=== PATIENT | male | born 1985 | race Caucasian/White ===

== ENCOUNTER 2018-09-08 23:30 | Emergency (ER) | payer OTHER ==
[2018-09-08 23:45] VITALS: TEMP 98.3
[2018-09-09 00:20] LABS: Appearance,Urine Clear (Clear); Bilirubin,Urine Negative (Negative); Blood,Urine Negative (Negative); Color,Urine Colorless; Glucose,Urine (UA) Negative (Negative); Ketones,Urine Negative (Negative); Leukocyte Esterase,Urine Negative (Negative); Nitrite,Urine Negative (Negative); Protein,Urine Negative (Negative); Urobilinogen,Urine <2.0 mg/dL (<2.0)
[2018-09-09 00:30] LABS: Amphetamine Screen,Urine Not Detected (NotDetected); Barbiturate Screen,Urine Not Detected (NotDetected); Benzodiazepines Screen,Urine Not Detected (NotDetected); Cocaine Screen,Urine Not Detected (NotDetected); Methadone Screen, Urine Not Detected (NotDetected); Opiate Screen,Urine Not Detected (NotDetected); Oxycodone Screen, Urine Not Detected (NotDetected); Phencyclidine Screen,Urine Not Detected (NotDetected); Tricyclic Antidepressant,Urine Not Detected (NotDetected); Urn Cannabinoid Scrn Not Detected (NotDetected)
--- NOTE | 2018-09-09 00:36 | ED ---
Psych HPI - General Source: patient Mode of arrival: ambulatory - History of Present Illness MD Complaint: other Onset/Timin -: week(s) Associated Psychiatric Symptoms: depression, homicidal ideation History of same: No Quality: getting worse Improves With: none Worsens With: alcohol Context: recent alcohol abuse Associated Symptoms: denies other symptoms <JajaOtilio - Last Filed: 09/09/18 00:27> <Eron Cartwright - Last Filed: 09/09/18 11:20> - General Chief Complaint: Psychiatric Symptoms Stated Complaint: mental health Time Seen by Provider: 09/08/18 23:52 - History of Present Illness Initial Comments: This patient is a 33-year-old man who presents with the complaint that he is having thoughts of hurting people. The patient states that going back 2-3 weeks now he is been getting increasingly depressed, and having thoughts of hurting people around him. He denied specific homicidal ideation. He denied suicidal ideation. The patient states he has also been drinking a fair amount recently, 5-10 beers per day plus shots. (Otilio Wilkinson) - Related Data Home Medications Medication Instructions Recorded Confirmed No Known Home Medications 09/08/18 09/09/18 Allergies Allergy/AdvReac Type Severity Reaction Status Date / Time No Known Allergies Allergy Verified 09/09/18 10:51 Review of Systems ROS Other: All systems not noted in ROS Statement are negative. Constitutional: Denies: fever Respiratory: Denies: cough, dyspnea Cardiovascular: Denies: chest pain, palpitations Gastrointestinal: Denies: abdominal pain, vomiting, diarrhea Genitourinary: Denies: dysuria, hematuria Musculoskeletal: Denies: back pain Skin: Denies: rash Neurological: Denies: headache Psychiatric: Reports: depression, homicidal thoughts. Denies: auditory hallucinations, visual hallucinations, suicidal thoughts <Otilio Wilkinson - Last Filed: 09/09/18 00:27> ROS Other: All systems not noted in ROS Statement are negative. <Eron Cartwright - Last Filed: 09/09/18 11:20> ROS Statement: Those systems with pertinent positive or pertinent negative responses have been documented in the HPI. Past Medical History Past Medical History: Asthma, Hypertension Additional Past Medical History / Comment(s): back pain History of Any Multi-Drug Resistant Organisms: None Reported Past Surgical History: No Surgical Hx Reported Past Psychological History: No Psychological Hx Reported Smoking Status: Current every day smoker Past Alcohol Use History: Daily Past Drug Use History: None Reported <Otilio Wilkinson - Last Filed: 09/09/18 00:27> General Exam Limitations: no limitations General appearance: alert, in no apparent distress, appears intoxicated Head exam: Present: atraumatic, normocephalic Eye exam: Present: normal appearance. Absent: scleral icterus, conjunctival injection Respiratory exam: Present: normal lung sounds bilaterally. Absent: respiratory distress, wheezes, rales, rhonchi, stridor Cardiovascular Exam: Present: regular rate, normal rhythm, normal heart sounds. Absent: systolic murmur, diastolic murmur, rubs, gallop GI/Abdominal exam: Present: soft. Absent: distended, tenderness, guarding, rebound, mass Extremities exam: Present: normal inspection. Absent: pedal edema Neurological exam: Present: alert Psychiatric exam: Present: depressed, homicidal ideation. Absent: agitated, anxious, flat affect, manic, suicidal ideation Skin exam: Present: warm, dry, intact, normal color. Absent: rash <Otilio Wilkinson - Last Filed: 09/09/18 00:27> Vital Signs 09/08/18 09/09/18 23:40 05:48 Temperature 98.3 F Pulse Rate 115 H 96 Respiratory 20 16 Rate Blood Pressure 137/94 124/82 O2 Sat by Pulse 98 96 Oximetry - Lab Data Lab Results 09/08/18 Range/Units 23:55 Urine Color Colorless Urine Appearance Clear (Clear) Urine pH 5.0 (5.0-8.0) Ur Specific [place] 1.000 L (1.001-1.035) Urine Protein Negative (Negative) Urine Glucose (UA) Negative (Negative) Urine Ketones Negative (Negative) Urine Blood Negative (Negative) Urine Nitrite Negative (Negative) Urine Bilirubin Negative (Negative) Urine Urobilinogen <2.0 (<2.0) mg/dL Ur Leukocyte Esterase Negative (Negative) Urine Opiates Screen Not Detected (NotDetected) Ur Oxycodone Screen Not Detected (NotDetected) Urine Methadone Screen Not Detected (NotDetected) Ur Propoxyphene Screen Not Detected (NotDetected) Ur Barbiturates Screen Not Detected (NotDetected) U Tricyclic Antidepress Not Detected (NotDetected) Ur Phencyclidine Scrn Not Detected (NotDetected) Ur Amphetamines Screen Not Detected (NotDetected) U Methamphetamines Scrn Not Detected (NotDetected) U Benzodiazepines Scrn Not Detected (NotDetected) Urine Cocaine Screen Not Detected (NotDetected) U Marijuana (THC) Screen Not Detected (NotDetected) Disposition <Otilio Wilkinson - Last Filed: 09/09/18 00:27> Is patient prescribed a controlled substance at d/c from ED?: No Time of Disposition: 11:20 <Eron Cartwright - Last Filed: 09/09/18 11:20> Clinical Impression: Alcohol abuse, Mood disturbance Disposition: HOME SELF-CARE Condition: Good Instructions (If sedation given, give patient instructions): Abuse of Alcohol ( ED) Additional Instructions: Follow-up per [facility] directions Referrals: Jim Saucedo MD [REFERRING] - 1-2 days
[2018-09-09] MEDS ORDERED: ASPIRIN 81 MG PO STA (01:03)
[2018-09-09 05:49] VITALS: BP 124/82; PULSE 96; RESP 16
== END 2018-09-09 11:58 | disposition home or self-care (01) ==
LOC: EC 23:30
DX: F10.10 Alcohol abuse, uncomplicated (principal); F99 Mental disorder, not otherwise specified; F17.200 Nicotine dependence, unspecified, uncomplicated
CPT/HCPCS: 80306; 81003; 82075; 93005; 99284

== ENCOUNTER 2020-12-24 20:49 | Emergency (ER) | payer OTHER ==
[2020-12-24 20:55] VITALS: RESP 16; TEMP 97.7
--- NOTE | 2020-12-24 21:11 | ED ---
Chest Pain HPI - General Chief Complaint: Chest Pain Stated Complaint: Chest Pain Time Seen by Provider: 12/24/20 21:03 Source: patient, EMS Mode of arrival: EMS Limitations: no limitations - History of Present Illness Initial Comments: This patient is a 35-year-old man who presents to be evaluated for chest pain that he states has been going on intermittently for one year. Contrary to nursing notes he states it started in the morning today. MD Complaint: chest pain Onset/Timin -: year(s) Onset: during rest Pain Location: left chest Pain Radiation: none Severity: moderate Quality: aching Consistency: intermittent Improves With: nothing Worsens With: nothing Anginal Symptoms: vomiting Treatments Prior to Arrival: none - Related Data Home Medications Medication Instructions Recorded Confirmed Pantoprazole Sodium [Protonix] 40 mg PO DAILY 12/24/20 12/24/20 Allergies Allergy/AdvReac Type Severity Reaction Status Date / Time No Known Allergies Allergy Verified 12/24/20 22:59 Review of Systems ROS Statement: Those systems with pertinent positive or pertinent negative responses have been documented in the HPI. ROS Other: All systems not noted in ROS Statement are negative. Constitutional: Denies: fever, chills Respiratory: Denies: cough, dyspnea Cardiovascular: Reports: chest pain. Denies: palpitations, orthopnea, edema, syncope Gastrointestinal: Reports: vomiting. Denies: abdominal pain, nausea, diarrhea, constipation, melena, hematochezia Genitourinary: Denies: dysuria, hematuria Musculoskeletal: Denies: back pain Skin: Denies: rash Neurological: Denies: headache, weakness, numbness EKG Findings - EKG Results: EKG: interpreted by SALMA DUMONT, sinus rhythm (Rate 90 bpm), normal axis, normal QRS, normal ST/T, no acute changes Past Medical History Past Medical History: Asthma, Hypertension, Myocardial Infarction ([place]) Additional Past Medical History / Comment(s): back pain History of Any Multi-Drug Resistant Organisms: None Reported Past Surgical History: No Surgical Hx Reported Additional Past Surgical History / Comment(s): skin graft as child Past Psychological History: No Psychological Hx Reported Smoking Status: Current every day smoker Past Alcohol Use History: Heavy Past Drug Use History: None Reported General Exam Limitations: no limitations General appearance: alert, in no apparent distress Head exam: Present: atraumatic, normocephalic Eye exam: Present: normal appearance. Absent: scleral icterus, conjunctival injection Neck exam: Present: normal inspection, full ROM Respiratory exam: Present: normal lung sounds bilaterally, chest wall tenderness. Absent: respiratory distress, wheezes, rales, rhonchi, stridor Cardiovascular Exam: Present: regular rate, normal rhythm, normal heart sounds. Absent: systolic murmur, diastolic murmur, rubs, gallop GI/Abdominal exam: Present: soft, tenderness (Mild left upper quadrant tenderness no rebound or guarding). Absent: distended, guarding, rebound, rigid, mass, pulsatile mass, hernia Extremities exam: Present: normal inspection, normal capillary refill. Absent: pedal edema, calf tenderness Back exam: Present: normal inspection. Absent: CVA tenderness (R), CVA tenderness (L) Neurological exam: Present: alert Skin exam: Present: warm, dry, intact, normal color. 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
[2020-12-24 21:15] LABS: Basophils # (A) 0.2 k/uL (0-0.2); Basophils % (A) 2 %; Eosinophils # (A) 0.6 k/uL (0-0.7); Eosinophils % (A) 6 %; HCT 43.3 % (39.0-53.0); HGB 14.7 gm/dL (13.0-17.5); Lymphocytes # (A) 3.5 k/uL (1.0-4.8); Lymphocytes % (A) 34 %; MCH 33.9 pg (25.0-35.0); MCV 99.9 fL (80.0-100.0); Mean Platelet Volume 7.1; Monocytes # (A) 0.6 k/uL (0-1.0); Monocytes % (A) 6 %; Neutrophils # (A) 5.1 k/uL (1.3-7.7); Neutrophils % (A) 49 %; Platelet Count 205 k/uL (150-450); RBC 4.33 m/uL (4.30-5.90); RDW 13.1 % (11.5-15.5); WBC 10.4 k/uL (3.8-10.6)
[2020-12-24 21:24] LABS: INR 0.9 (<1.2); Partial Thromboplastin Time 23.4 sec (22.0-30.0); Prothrombin Time 9.7 sec (9.0-12.0)
[2020-12-24 21:28] LABS: ALT 25 U/L (4-49); AST 75 U/L (17-59); African American GFR (CKD) >90 (>60 ml/min/1.73 sqM); Albumin 3.7 g/dL (3.5-5.0); Alkaline Phosphatase 62 U/L (38-126); Anion Gap 9 mmol/L; Blood Urea Nitrogen 4 mg/dL (9-20); Calcium 8.7 mg/dL (8.4-10.2); Carbon Dioxide 23 mmol/L (22-30); Chloride 105 mmol/L (98-107); Glucose 75 mg/dL (74-99); Magnesium 1.7 mg/dL (1.6-2.3); Non-African American GFR(CKD) >90 (>60 ml/min/1.73 sqM); Potassium 3.6 mmol/L (3.5-5.1); Sodium 137 mmol/L (137-145); Total Bilirubin 0.3 mg/dL (0.2-1.3); Total Protein 6.4 g/dL (6.3-8.2)
[2020-12-24] MEDS ORDERED: MORPHINE SULFATE 4 MG/ML SYRINGE IV STA (21:31)
--- NOTE | 2020-12-24 21:34 | XR ---
EXAMINATION TYPE: XR chest 2V DATE OF EXAM: 12/24/2020 COMPARISON: NONE HISTORY: Chest pain TECHNIQUE: 2 views FINDINGS: Heart and mediastinum are normal. Lungs are clear. Diaphragm is normal. Bony thorax is inta ct. IMPRESSION: Normal chest. Normal heart.
[2020-12-24 23:26] VITALS: BP 120/88; PULSE 88
== END 2020-12-24 23:26 | disposition home or self-care (01) ==
LOC: EC 20:49
DX: R07.89 Other chest pain (principal); R11.10 Vomiting, unspecified; J45.909 Unspecified asthma, uncomplicated; I10 Essential (primary) hypertension; I25.2 Old myocardial infarction; F17.200 Nicotine dependence, unspecified, uncomplicated
CPT/HCPCS: 36415; 71046; 80053; 83735; 84484; 85025; 85610; 85730; 93005; 96374; 99285

== ENCOUNTER 2021-06-10 15:59 | Inpatient (IN) | payer OTHER ==
--- NOTE | 2021-06-10 16:51 | ED ---
Abdominal Pain HPI - General Chief Complaint: Abdominal Pain Stated Complaint: chest pain Source: patient Mode of arrival: ambulatory Limitations: no limitations - History of Present Illness Initial Comments: 36-year-old male with past history of asthma, hypertension, CVA and 2 reported MIs who presents to the emergency department as reported chest pain. States that the pain is located over the left side of his chest wall and into the left upper quadrant of his abdomen. Pain has been going on for the past month however states that it became acutely worse today. He also feels fatigued. States he's been sleeping all day. He denies cough, fevers or congestion. Admits to nausea without vomiting. No history of abdominal surgeries. Denies history of peptic ulcer disease. Patient denies alcohol intake. Only admits to tobacco use. No history of EGD. He denies hematemesis. Admits diarrhea. No black or bloody stools. Patient arrives with a high heart rate. No other alleviating, precipitating or modifying factors - Related Data Home Medications Medication Instructions Recorded Confirmed Pantoprazole Sodium [Protonix] 40 mg PO DAILY 12/24/20 06/10/21 Allergies Allergy/AdvReac Type Severity Reaction Status Date / Time No Known Allergies Allergy Verified 06/10/21 16:55 Review of Systems ROS Statement: Those systems with pertinent positive or pertinent negative responses have been documented in the HPI. ROS Other: All systems not noted in ROS Statement are negative. Past Medical History Past Medical History: Asthma, Hypertension, Myocardial Infarction ([place]) Additional Past Medical History / Comment(s): back pain History of Any Multi-Drug Resistant Organisms: None Reported Past Surgical History: No Surgical Hx Reported Additional Past Surgical History / Comment(s): skin graft as child Past Psychological History: No Psychological Hx Reported Smoking Status: Current every day smoker Past Alcohol Use History: Occasional Past Drug Use History: None Reported General Exam Limitations: no limitations Course Vital Signs 06/10/21 06/10/21 06/10/21 16:05 19:02 20:32 Temperature 98.5 F Pulse Rate 124 H 116 H 107 H Respiratory 20 18 18 Rate Blood Pressure 144/85 140/97 138/94 O2 Sat by Pulse 99 98 98 Oximetry Medical Decision Making - Medical Decision Making On arrival patient is placed into room 23. A thorough history and physical exam is performed. IV is established. Patient is given a liter bolus of normal saline. He does smell of alcohol. Laboratory studies are obtained and demonstrated an elevated d-dimer of 0.71 and alcohol of 223. He went over for a CT of his abdomen and pelvis before d-dimer came back. CT demonstrated no acute findings. Chest x-ray demonstrated no acute findings. The patient does have persistent tachycardia however improved to a rate of 110. Due to his elevated d-dimer I do feel that the patient needs a lung perfusion scan due to chest pain and persistent tachycardia. He she will be given a dose of Lovenox at this time with lung perfusion scan pending. Recommended admission for which Dr. Orozco accepted and agreed to treatment plan. He is currently awaiting a bed on the floor - Lab Data Result diagrams: 06/10/21 17:26 06/10/21 17:26 Lab Results 06/10/21 06/10/21 06/10/21 Range/Units 17:26 17:26 17:26 WBC 9.8 (3.8-10.6) k/uL RBC 4.88 (4.30-5.90) m/uL Hgb 16.3 (13.0-17.5) gm/dL Hct 49.2 (39.0-53.0) % MCV 100.8 H (80.0-100.0) fL MCH 33.5 (25.0-35.0) pg MCHC 33.3 (31.0-37.0) g/dL RDW 12.8 (11.5-15.5) % Plt Count 294 (150-450) k/uL MPV 7.1 Neutrophils % 63 % Lymphocytes % 24 % Monocytes % 5 % Eosinophils % 3 % Basophils % 1 % Neutrophils # 6.2 (1.3-7.7) k/uL Lymphocytes # 2.3 (1.0-4.8) k/uL Monocytes # 0.5 (0-1.0) k/uL Eosinophils # 0.3 (0-0.7) k/uL Basophils # 0.1 (0-0.2) k/uL PT 9.9 (9.0-12.0) sec INR 0.9 (<1.2) APTT 24.6 (22.0-30.0) sec D-Dimer 0.71 H (<0.60) mg/L FEU Sodium 141 (137-145) mmol/L Potassium 4.0 (3.5-5.1) mmol/L Chloride 106 (98-107) mmol/L Carbon Dioxide 26 (22-30) mmol/L Anion Gap 9 mmol/L BUN 5 L (9-20) mg/dL Creatinine 0.67 (0.66-1.25) mg/dL Est GFR (CKD-EPI)AfAm >90 (>60 ml/min/1.73 sqM) Est GFR (CKD-EPI)NonAf >90 (>60 ml/min/1.73 sqM) Glucose 102 H (74-99) mg/dL Plasma Lactic Acid [place] (0.7-2.0) mmol/L Calcium 9.4 (8.4-10.2) mg/dL Total Bilirubin 0.3 (0.2-1.3) mg/dL AST 48 (17-59) U/L ALT 16 (4-49) U/L Alkaline Phosphatase 49 (38-126) U/L Troponin I (0.000-0.034) ng/mL Total Protein 7.5 (6.3-8.2) g/dL Albumin 4.2 (3.5-5.0) g/dL Lipase 157 (23-300) U/L Serum Alcohol 223 H* mg/dL 06/10/21 06/10/21 Range/Units 17:26 17:26 WBC (3.8-10.6) k/uL RBC (4.30-5.90) m/uL Hgb (13.0-17.5) gm/dL Hct (39.0-53.0) % MCV (80.0-100.0) fL MCH (25.0-35.0) pg MCHC (31.0-37.0) g/dL RDW (11.5-15.5) % Plt Count (150-450) k/uL MPV Neutrophils % % Lymphocytes % % Monocytes % % Eosinophils % % Basophils % % Neutrophils # (1.3-7.7) k/uL Lymphocytes # (1.0-4.8) k/uL Monocytes # (0-1.0) k/uL Eosinophils # (0-0.7) k/uL Basophils # (0-0.2) k/uL PT (9.0-12.0) sec INR (<1.2) APTT (22.0-30.0) sec D-Dimer (<0.60) mg/L FEU Sodium (137-145) mmol/L Potassium (3.5-5.1) mmol/L Chloride (98-107) mmol/L Carbon Dioxide (22-30) mmol/L Anion Gap mmol/L BUN (9-20) mg/dL Creatinine (0.66-1.25) mg/dL Est GFR (CKD-EPI)AfAm (>60 ml/min/1.73 sqM) Est GFR (CKD-EPI)NonAf (>60 ml/min/1.73 sqM) Glucose (74-99) mg/dL Plasma Lactic Acid [place] 2.0 (0.7-2.0) mmol/L Calcium (8.4-10.2) mg/dL Total Bilirubin (0.2-1.3) mg/dL AST (17-59) U/L ALT (4-49) U/L Alkaline Phosphatase (38-126) U/L Troponin I <0.012 (0.000-0.034) ng/mL Total Protein (6.3-8.2) g/dL Albumin (3.5-5.0) g/dL Lipase (23-300) U/L Serum Alcohol mg/dL - EKG Data EKG Comments: EKG demonstrates sinus tachycardia with a rate of 113. NM interval 132. She has 90. QTC of 474. No acute ST segment elevations or depressions Disposition Clinical Impression: Chest pain, Tachycardia, Elevated d-dimer Disposition: ADMITTED IP TO THIS HOSP Condition: Stable Is patient prescribed a controlled substance at d/c from ED?: No Decision to Admit Reason: Admit from EC Decision Date: 06/10/21 Decision Time: 19:48
[2021-06-10] MEDS ORDERED: SODIUM CHLORIDE 0.9% 1,000 ML IV ONE (17:09)
[2021-06-10] MEDS ORDERED: MORPHINE SULFATE 4 MG/ML SYRINGE IVP STA (17:09)
[2021-06-10 17:36] LABS: Basophils # (A) 0.1 k/uL (0-0.2); Basophils % (A) 1 %; Eosinophils # (A) 0.3 k/uL (0-0.7); Eosinophils % (A) 3 %; HCT 49.2 % (39.0-53.0); HGB 16.3 gm/dL (13.0-17.5); Lymphocytes # (A) 2.3 k/uL (1.0-4.8); Lymphocytes % (A) 24 %; MCH 33.5 pg (25.0-35.0); MCHC 33.3 g/dL (31.0-37.0); MCV 100.8 fL (80.0-100.0); Mean Platelet Volume 7.1; Monocytes # (A) 0.5 k/uL (0-1.0); Monocytes % (A) 5 %; Neutrophils # (A) 6.2 k/uL (1.3-7.7); Neutrophils % (A) 63 %; Platelet Count 294 k/uL (150-450); RBC 4.88 m/uL (4.30-5.90); RDW 12.8 % (11.5-15.5); WBC 9.8 k/uL (3.8-10.6)
[2021-06-10 17:47] LABS: ALT 16 U/L (4-49); AST 48 U/L (17-59); African American GFR (CKD) >90 (>60 ml/min/1.73 sqM); Albumin 4.2 g/dL (3.5-5.0); Alkaline Phosphatase 49 U/L (38-126); Anion Gap 9 mmol/L; Blood Urea Nitrogen 5 mg/dL (9-20); Calcium 9.4 mg/dL (8.4-10.2); Carbon Dioxide 26 mmol/L (22-30); Chloride 106 mmol/L (98-107); Glucose 102 mg/dL (74-99); Lipase 157 U/L (23-300); Non-African American GFR(CKD) >90 (>60 ml/min/1.73 sqM); Sodium 141 mmol/L (137-145); Total Bilirubin 0.3 mg/dL (0.2-1.3); Total Protein 7.5 g/dL (6.3-8.2)
[2021-06-10 17:53] LABS: INR 0.9 (<1.2); Partial Thromboplastin Time 24.6 sec (22.0-30.0); Prothrombin Time 9.9 sec (9.0-12.0)
[2021-06-10 17:57] LABS: Alcohol 223 mg/dL
--- NOTE | 2021-06-10 18:51 | CT ---
EXAMINATION TYPE: CT abdomen pelvis w con DATE OF EXAM: 06/10/2021 COMPARISON: None HISTORY: Left upper quadrant pain x couple weeks. CT DLP: 735.8 mGycm Automated exposure control for dose reduction was used. CONTRAST: Performed with IV Contrast, patient injected with 100 mL of Isovue 300. Images obtained from the diaphragm to the floor the pelvis without contrast. Lung bases are clear of consolidation. There is no pleural effusion. Heart size is normal. There is n o pericardial effusion. Liver spleen stomach pancreas gallbladder appear intact. Bile ducts are not dilated. There is no adrenal mass. Kidneys show satisfactory contrast opacification. There is no hydronephrosi s. Bladder distends smoothly. There is no inguinal hernia. There is no free fluid in the pelvis. Appendix appears normal. There is no mesenteric edema. There is no ascites or free air. There is no e vidence of a bowel obstruction. Lumbar vertebra have normal alignment. Posterior elements are intact. There is no compression fracture. Bony pelvis is intact. The hip joints are intact. IMPRESSION: Negative CT scan of the abdomen and pelvis. Normal appendix.
--- NOTE | 2021-06-10 18:56 | XR ---
EXAMINATION TYPE: XR chest 2V DATE OF EXAM: 06/10/2021 COMPARISON: 12/24/2020 HISTORY: Abdominal pain TECHNIQUE: 2 views FINDINGS: Heart and mediastinum are normal. Lungs are clear. Diaphragm is normal. Bony thorax is inta ct. There are chest leads. IMPRESSION: Normal chest. No change.
[2021-06-10] MEDS ORDERED: THIAMINE 100 MG/ML 2 ML VIAL IM STA (19:46)
[2021-06-10] MEDS ORDERED: LORazepam 2 MG/ML INJ IV PRN ×3 (19:46)
[2021-06-10] MEDS ORDERED: ENOXAPARIN 80 MG/0.8 ML SYRINGE SQ STA (19:47)
[2021-06-10] MEDS ORDERED: NALOXONE 0.4 MG/ML 1 ML VIAL IV PRN (19:48)
[2021-06-10] MEDS: diazePAM 2 MG TAB PO SCH (20:28)
[2021-06-10] MEDS: METOPROLOL TARTRATE 12.5 MG TAB PO SCH (20:28)
[2021-06-10] MEDS: SODIUM CHLORIDE 0.9% 1,000 ML IV SCH (20:29)
[2021-06-10] MEDS ORDERED: PANTOPRAZOLE 40 MG/10 ML VIAL IVP STA (21:10)
[2021-06-11 03:36] LABS: Basophils # (A) 0.1 k/uL (0-0.2); Basophils % (A) 1 %; Eosinophils # (A) 0.3 k/uL (0-0.7); Eosinophils % (A) 2 %; HCT 43.5 % (39.0-53.0); HGB 14.6 gm/dL (13.0-17.5); Lymphocytes # (A) 2.8 k/uL (1.0-4.8); Lymphocytes % (A) 24 %; MCH 34.2 pg (25.0-35.0); MCHC 33.6 g/dL (31.0-37.0); MCV 101.8 fL (80.0-100.0); Macrocytosis Slight; Mean Platelet Volume 7.1; Monocytes # (A) 0.6 k/uL (0-1.0); Monocytes % (A) 5 %; Neutrophils # (A) 7.7 k/uL (1.3-7.7); Neutrophils % (A) 66 %; Platelet Count 254 k/uL (150-450); RBC 4.28 m/uL (4.30-5.90); RDW 12.8 % (11.5-15.5); WBC 11.6 k/uL (3.8-10.6)
[2021-06-11] MEDS: SODIUM CHLORIDE 0.9% 1,000 ML IV SCH (03:57)
[2021-06-11 03:58] LABS: African American GFR (CKD) >90 (>60 ml/min/1.73 sqM); Anion Gap 3 mmol/L; Blood Urea Nitrogen 3 mg/dL (9-20); Calcium 8.5 mg/dL (8.4-10.2); Carbon Dioxide 27 mmol/L (22-30); Chloride 106 mmol/L (98-107); Glucose 86 mg/dL (74-99); Non-African American GFR(CKD) >90 (>60 ml/min/1.73 sqM); Potassium 3.6 mmol/L (3.5-5.1); Sodium 136 mmol/L (137-145)
[2021-06-11 06:18] LABS: Appearance,Urine Clear (Clear); Bilirubin,Urine Negative (Negative); Blood,Urine Negative (Negative); Color,Urine Yellow; Glucose,Urine (UA) Negative (Negative); Ketones,Urine Negative (Negative); Leukocyte Esterase,Urine Negative (Negative); Nitrite,Urine Negative (Negative); Protein,Urine Negative (Negative); Specific Gravity,Urine 1.026 (1.001-1.035); Urobilinogen,Urine <2.0 mg/dL (<2.0)
[2021-06-11 06:55] VITALS: BP 124/77; PULSE 93; RESP 13; TEMP 98.3
[2021-06-11] MEDS ORDERED: THIAMINE 100 MG TAB PO SCH (07:30)
[2021-06-11] MEDS: METOPROLOL TARTRATE 12.5 MG TAB PO SCH (08:10)
[2021-06-11] MEDS: diazePAM 2 MG TAB PO SCH (08:10)
--- NOTE | 2021-06-11 10:08 | P.CRDCN ---
History of Present Illness History of present illness: HISTORY OF PRESENTING ILLNESS This is a pleasant 36-year-old male past medical history significant for asthma, alcohol use, chronic nicotine dependence (smokes 1PPD), hypertension (states he is not on medication), 3 strokes per patient (unknown details), possible cardiac arrest in [place] he states 1-2 years ago? Patient unable to give accurate details of this incident. 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 We have been asked to see in consultation for chest pain. Patient presents emergency department with left upper quadrant abdominal pain for about 2 weeks that has progressively been getting worse. He states it is aggravated by activity and palpation to his LUQ. His pain is non-radiating. He denies chest pain. He states it is associated with mild shortness of breath and nausea. He also does endorse symptoms of orthopnea. He denies history of coronary artery disease or stent placements, heart failure or diabetes. Family history includes grandfather had an MD unsure of what age. He states about 1-2 years ago he was in [place] and was told his "heart stopped" he is unaware of any details. He is a current every day smoker smokes 1PPD. He states he does drink alcohol about 6pack Tuesday and Tuesday, however he does state he did drink a 12oz beer yesterday. He denies daily alcohol use. Denies illicit drug use. Patient plan to go for VQ scan today DIAGNOSTICS EKG reveals sinus tachycardia, heart rate 113, LVH, no significant ST-T wave abnormalities Telemetry tracings indicate sinus mechanism HR 80s-low 100s. CT abdomen and Pelvis- no acute findings Chest xray no acute cardiopulmonary process Laboratory reviewed, WBC 11.6, hemoglobin 14.6, platelets 254, sodium 136, potassium 3.6, BUN 3, serum current 0.5, troponin negative 3, UA negative, serum alcohol 223, COVID-19 PCR negative Current home medications include Protonix. Patient started on PRN ativan and metoprolol tartrate 12.5mg BID. REVIEW OF SYSTEMS At the time of my exam: CONSTITUTIONAL: Denies fever or chills. CARDIOVASCULAR: +shortness of breath, +orthopnea Denies chest pain, PND or palpitations. RESPIRATORY: Denies cough. GASTROINTESTINAL: +LUQ abdominal pain, Denies diarrhea, constipation, nausea or vomiting. MUSCULOSKELETAL: Denies myalgias. NEUROLOGIC: Denies numbness, tingling, headacbe or weakness. ENDOCRINE: Denies fatigue, weight change, polydipsia or polyurina. GENITOURINARY: Denies burning, hematuria or urgency with micturation. HEMATOLOGIC: Denies history of anemia or bleeding. PHYSICAL EXAMINATION Blood pressure 124/77, heart rate 93, afebrile oxygen saturation 94% on room air CONSTITUTIONAL: No apparent distress. HEENT: Head is normocephalic. Pupils are equal, round. Sclerae anicteric. Mucous membranes of the mouth are moist. No JVD. No carotid bruit. CHEST EXAMINATION: Lungs are clear to auscultation. No chest wall tenderness is noted on palpation or with deep breathing. HEART EXAMINATION: Regular, tachycardic rate and rhythm. S1, S2 heard. No murmurs, gallops or rub. ABDOMEN: Soft, nontender. Positive bowel sounds. EXTREMITIES: 2+ peripheral pulses, no lower extremity edema and no calf tenderness. NEUROLOGIC EXAMINATION: Patient is awake, alert and oriented x3. ASSESSMENT LUQ abdominal pain Sinus Tachycardia History of Asthma History of hypertension Alcohol use Alcohol withdrawal Chronic nicotine dependence History of CVA- patient reports history of 3 CVAs, unable to give details PLAN An acute coronary event has been ruled out with no EKG evidence of ischemia and negative cardiac enzymes. Patient denies any chest pain on exam. Obtain 2D echocardiogram and doppler study to assess cardiac structure and function. Smoking and alcohol cessation discussed and highly recommended. If echocardiogram with no acute findings, no further cardiac workup indicated at this time. Rest of management per primary. Thank you kindly for this consultation. Nurse Practitioner note has been reviewed, I agree with a documented findings and plan of care. Patient was seen and examined. Past Medical History Past Medical History: Asthma, Hypertension, Myocardial Infarction (MD) Additional Past Medical History / Comment(s): back pain Last Myocardial Infarction Date:: 2019 History of Any Multi-Drug Resistant Organisms: None Reported Past Surgical History: No Surgical Hx Reported Additional Past Surgical History / Comment(s): skin graft as child Past Psychological History: No Psychological Hx Reported Smoking Status: Current every day smoker Past Alcohol Use History: Occasional Past Drug Use History: None Reported Medications and Allergies Home Medications Medication Instructions Recorded Confirmed Type Pantoprazole Sodium [Protonix] 40 mg PO DAILY 12/24/20 06/10/21 History Allergies Allergy/AdvReac Type Severity Reaction Status Date / Time No Known Allergies Allergy Verified 06/10/21 16:55 Physical Exam Vitals: Vital Signs Temp Pulse Pulse Resp BP BP Pulse Ox 06/11/21 06:51 98.3 F 93 13 124/77 94 L 06/11/21 01:39 98.1 F 97 20 133/70 92 L 06/10/21 23:10 98.3 F 99 22 160/93 97 06/10/21 20:32 107 H 18 138/94 98 06/10/21 19:02 116 H 18 140/97 98 06/10/21 16:05 98.5 F 124 H 20 144/85 99 Intake and Output 06/10/21 06/11/21 06/11/21 22:59 06:59 14:59 Other: Voiding Method Toilet Urinal # Voids 2 Weight 71.668 kg Results 06/11/21 03:16 06/11/21 03:16 Cardiac Enzymes 06/10/21 06/10/21 06/10/21 Range/Units 17:26 17:26 21:13 AST 48 (17-59) U/L Troponin I <0.012 <0.012 (0.000-0.034) ng/mL 06/11/21 Range/Units 03:16 AST (17-59) U/L Troponin I <0.012 (0.000-0.034) ng/mL Coagulation 06/10/21 Range/Units 17:26 PT 9.9 (9.0-12.0) sec APTT 24.6 (22.0-30.0) sec CBC 06/10/21 06/11/21 Range/Units 17:26 03:16 WBC 9.8 11.6 H (3.8-10.6) k/uL RBC 4.88 4.28 L (4.30-5.90) m/uL Hgb 16.3 14.6 (13.0-17.5) gm/dL Hct 49.2 43.5 (39.0-53.0) % Plt Count 294 254 (150-450) k/uL Comprehensive Metabolic Panel 06/10/21 06/11/21 Range/Units 17:26 03:16 Sodium 141 136 L (137-145) mmol/L Potassium 4.0 3.6 (3.5-5.1) mmol/L Chloride 106 106 (98-107) mmol/L Carbon Dioxide 26 27 (22-30) mmol/L BUN 5 L 3 L (9-20) mg/dL Creatinine 0.67 0.59 L (0.66-1.25) mg/dL Glucose 102 H 86 (74-99) mg/dL Calcium 9.4 8.5 (8.4-10.2) mg/dL AST 48 (17-59) U/L ALT 16 (4-49) U/L Alkaline Phosphatase 49 (38-126) U/L Total Protein 7.5 (6.3-8.2) g/dL Albumin 4.2 (3.5-5.0) g/dL Current Medications Generic Name Dose Route Start Last Admin Trade Name Freq PRN Reason Stop Dose Admin Diazepam 2 mg 06/10/21 22:00 06/11/21 08:10 Diazepam 2 Mg Tab PO 2 mg TID JN Administration Sodium Chloride 1,000 mls @ 130 mls/hr 06/10/21 20:00 06/11/21 03:57 Saline 0.9% IV Not Given .[id number] JN Lorazepam 1 mg 06/10/21 19:46 06/10/21 23:30 Lorazepam 2 Mg/Ml Inj IV 1 mg Q2HR PRN Administration CIWA 8 or 9 Lorazepam 1 mg 06/10/21 19:46 Lorazepam 2 Mg/Ml Inj IV Q1HR PRN CIWA 10 to 15 Lorazepam 2 mg 06/10/21 19:46 Lorazepam 2 Mg/Ml Inj IV 06/12/21 19:47 Q10M PRN CIWA 16 or higher Metoprolol Tartrate 12.5 mg 06/10/21 21:00 06/11/21 08:10 Metoprolol Tartrate 12.5 Mg Tab PO 12.5 mg BID JN Administration Naloxone HCl 0.2 mg 06/10/21 19:48 Naloxone 0.4 Mg/Ml 1 Ml Vial IV Q2M PRN Opioid Reversal Thiamine HCl 100 mg 06/11/21 07:30 06/11/21 08:11 Thiamine 100 Mg Tab PO 100 mg BID-W/MEALS JN Administration Intake and Output 06/10/21 06/11/21 06/11/21 22:59 06:59 14:59 Other: Voiding Method Toilet Urinal # Voids 2 Weight 71.668 kg 06/11/21 03:16 06/11/21 03:16
--- NOTE | 2021-06-11 10:27 | NM ---
EXAMINATION TYPE: NM pul vent and perfuse DATE OF EXAM: 06/11/2021 COMPARISON: Chest x-ray 06/10/2021 HISTORY: Elevated d-dimer, chest pain TECHNIQUE: Utilizing inhalation of 37.5 mCi Tc 99m DTPA aerosol and intravenous injection of 5.1 mCi of Tc 99m MAA, ventilation and perfusion images are acquired post injection in multiple projections. FINDINGS: Radiotracer distribution on the perfusion images appears normal. Ventilation images appear unremarkab le. No moderate or large mismatched defects are evident. This exam is compared to the 06/10/2021 chest x-ray. No triple matched defects are evident. IMPRESSION: Low probability for pulmonary embolism based on PIOPED 2 criteria.
[2021-06-11] MEDS ORDERED: PANTOPRAZOLE 40 MG TABLET PO SCH (10:45)
[2021-06-11] MEDS ORDERED: NICOTINE 21MG/24HR PATCH TRANSDERM SCH (11:15)
--- NOTE | 2021-06-11 11:42 | ECHOF ---
Referral Reason:LV function MEASUREMENTS -------- HEIGHT: 172.7 cm WEIGHT: 71.7 kg BP: 124/77 RVIDd: 3.0 cm (< 3.3) IVSd: 1.1 cm (0.6 - 1.1) LVIDd: 5.1 cm (3.9 - 5.3) LVPWd: 1.1 cm (0.6 - 1.1) IVSs: 1.7 cm LVIDs: 3.5 cm LVPWs: 1.6 cm LAESV Index (A-L): 22.95 ml/m Ao Diam: 3.2 cm (2.0 - 3.7) AV Cusp: 2.6 cm (1.5 - 2.6) LA Diam: 3.5 cm (2.7 - 3.8) MV EXCURSION: 23.688 mm (> 18.000) MV EF SLOPE: 128 mm/s (70 - 150) EPSS: 0.9 cm MV E Jeff: 0.84 m/s MV DecT: 129 ms MV A Jeff: 0.74 m/s MV E/A Ratio: 1.13 RAP: 5.00 mmHg RVSP: 32.55 mmHg FINDINGS -------- Sinus rhythm. This was a technically adequate study. The left ventricular size is normal. There is borderline concentric left ventricular hypertrophy. Overall left ventricular systolic function is normal with, an EF between 55 - 60 %. The diastolic filling pattern is normal for the age of the patient 9.71. The right ventricle is normal in size. Normal LA size by volume 22+/-6 ml/m2. The right atrial size is normal. Interatrial and interventricular septum intact. The aortic valve is trileaflet, and appears structurally normal. No aortic stenosis or regurgitation. The mitral valve is normal. There is trace mitral regurgitation. The tricuspid valve appears structurally normal. Mild tricuspid regurgitation present. Right vent ricular systolic pressure is normal at < 35 mmHg. The right ventricular systolic pressure, as measu red by Doppler, is 32.55mmHg. There is no pulmonic regurgitation present. The aortic root size is normal. Normal inferior vena cava with normal inspiratory collapse consistent with estimated right atrial pre ssure of 5 mmHg. There is no pericardial effusion. CONCLUSIONS -------- 1. There is borderline concentric left ventricular hypertrophy. 2. Overall left ventricular systolic function is normal with, an EF between 55 - 60 %. 3. Normal LA size by volume 22+/-6 ml/m2. 4. The aortic valve is trileaflet, and appears structurally normal. No aortic stenosis or regurgitati on. 5. There is trace mitral regurgitation. 6. Mild tricuspid regurgitation present. 7. There is no pericardial effusion. SURVEY RODMAN: Deisi Marquis RDCS
--- NOTE | 2021-06-11 16:21 | P.HPIM ---
History of Present Illness H&P Date: 06/11/21 Chief Complaint: Chest pain This is a pleasant 6-year-old patient of Dr. Saucedo. Patient long-standing smoker. Has been drinking alcohol since the age of about 8. Drinks about 612 ounce beers average per day. 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 Patient presented yesterday after feeling tired dizzy. It was described as chest pressure but actually was complaining of discomfort in the epigastric area. Patient did run out of his Protonix. Has been having reflux symptoms. No precordial pain. Patient's alcohol level in the ER was 223. Patient only eats one meal a day. H amy was having early alcohol withdrawal symptoms. Was put on Valium and CIWA scale in the ER. This morning feeling better. Very slight tremors. Able to tolerate some breakfast. No chest pain. Review of systems: GEN.: Tired on presentation EYES: None HEENT: None NECK: None RESPIRATORY: None CARDIOVASCULAR: None GASTROINTESTINAL: Reflux GENITOURINARY: None MUSCULOSKELETAL: None LYMPHATICS: None HEMATOLOGICAL: None PSYCHIATRY: None NEUROLOGICAL: Mild tremors Past medical history to include: Asthma, hypertension questionable, questionable [place]. Social history: Lives with his sister and mother. 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 Has been drinking since the age of 8 about 6 beers a day of 12 ounce. Family history: Reviewed, noncontributory to presentation Physical examination: VITAL SIGNS: 98.5, 124, 20, 140/85, 99% room air upon presentation GENERAL: BMI 24, sitting up in bed, awake. EYES: Pupils equal. Conjunctiva normal. HEENT: External appearance of nose and ears normal, oral cavity grossly normal. NECK: JVD not raised; masses not palpable. HEART: First and second heart sounds are normal; no edema. LUNGS: Respiratory rate normal; clear to auscultation. ABDOMEN: Soft, nontender, liver spleen not palpable, no masses palpable. PSYCH: Alert and oriented x3; mood and affect slightly anxiousl. NEUROLOGICAL: Cranial nerves grossly intact; no facial asymmetry, power and sensation grossly intact mild tremor of the outstretched hand. LYMPHATICS: No lymph nodes palpable in the axilla and neck INVESTIGATIONS, reviewed in the clinical context: White count 9.81 was 16.3 platelets 24 potassium 4 BUN 5 creatinine 0.67 Troponin I 3 negative Lipase 157 UA: Negative Serum alcohol 223 Coronavirus [PCL]: Not detected EKG tracing personally reviewed by me-normal sinus rhythm. Chest x-ray film personally reviewed by me-no infiltrates CT abdomen pelvis: Negative Assessment and plan: -Early alcohol withdrawal syndrome Valium 2 mg 3 times a day. CIWA scale. Lopressor 12.5 by mouth twice a day to cut back on sympathetic drive -Acute alcohol intoxication with level of 223 on presentation -Chronic alcohol dependence disorder Patient counseled -Chronic nicotine dependence, cigarette smoking Nicotine patch 21 -GERD, uncontrolled Protonix. Avoid alcohol Patient was put on Valium. CIWA scale. Nicotine patch. Protonix. Counseled. Cardiology consulted. 2-D echo ordered. Smoke cessation counseling: This was done with the patient. Nicotine patch is being given. More than 3 minutes was spent for this Past Medical History Past Medical History: Asthma, Hypertension, Myocardial Infarction ([place]) Additional Past Medical History / Comment(s): back pain Last Myocardial Infarction Date:: 2019 History of Any Multi-Drug Resistant Organisms: None Reported Past Surgical History: No Surgical Hx Reported Additional Past Surgical History / Comment(s): skin graft as child Past Psychological History: No Psychological Hx Reported Smoking Status: Current every day smoker Past Alcohol Use History: Occasional Past Drug Use History: None Reported Medications and Allergies Home Medications Medication Instructions Recorded Confirmed Type Pantoprazole Sodium [Protonix] 40 mg PO DAILY 12/24/20 06/10/21 History Metoprolol Tartrate [Lopressor] 12.5 mg PO BID #6 tab 06/11/21 Rx Nicotine 21Mg/24Hr Patch [Habitrol] 1 each TRANSDERM DAILY #14 patch 06/11/21 Rx Thiamine [Vitamin B-1] 100 mg PO BID-W/MEALS #60 tab 06/11/21 Rx Allergies Allergy/AdvReac Type Severity Reaction Status Date / Time No Known Allergies Allergy Verified 06/10/21 16:55 Physical Exam Vitals: Vital Signs Temp Pulse Pulse Resp BP BP Pulse Ox 06/11/21 06:51 98.3 F 93 13 124/77 94 L 06/11/21 01:39 98.1 F 97 20 133/70 92 L 06/10/21 23:10 98.3 F 99 22 160/93 97 06/10/21 20:32 107 H 18 138/94 98 06/10/21 19:02 116 H 18 140/97 98 06/10/21 16:05 98.5 F 124 H 20 144/85 99 Intake and Output 06/10/21 06/11/21 06/11/21 22:59 06:59 14:59 Other: Voiding Method Toilet Urinal # Voids 2 Weight 71.668 kg Results CBC & Chem 7: 06/11/21 03:16 06/11/21 03:16 Labs: Abnormal Lab Results - Last 24 Hours (Table) 06/10/21 06/10/21 06/10/21 Range/Units 17:26 17:26 17:26 WBC (3.8-10.6) k/uL RBC (4.30-5.90) m/uL MCV 100.8 H (80.0-100.0) fL D-Dimer 0.71 H (<0.60) mg/L FEU Sodium (137-145) mmol/L BUN 5 L (9-20) mg/dL Creatinine (0.66-1.25) mg/dL Glucose 102 H (74-99) mg/dL Serum Alcohol 223 H* mg/dL 06/11/21 06/11/21 Range/Units 03:16 03:16 WBC 11.6 H (3.8-10.6) k/uL RBC 4.28 L (4.30-5.90) m/uL MCV 101.8 H (80.0-100.0) fL D-Dimer (<0.60) mg/L FEU Sodium 136 L (137-145) mmol/L BUN 3 L (9-20) mg/dL Creatinine 0.59 L (0.66-1.25) mg/dL Glucose (74-99) mg/dL Serum Alcohol mg/dL
--- NOTE | 2021-06-11 16:26 | P.DS ---
Providers Date of admission: 06/11/21 09:29 Expected date of discharge: 06/11/21 Attending physician: Jordan Orozco Consults: 06/11/21 08:27 Consult Physician Routine Consulting Provider: Yasmin Tucker Consult Reason/Comments: chest pain hx of 2 mi's in past Do you want consulting provider notified?: Yes [facility] Course: Chief Complaint: Chest pain This is a pleasant 6-year-old patient of Dr. Gunter. Patient long-standing smoker. Has been drinking alcohol since the age of about 8. Drinks about 612 ounce beers average per day. 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 Patient presented yesterday after feeling tired dizzy. It was described as chest pressure but actually was complaining of discomfort in the epigastric area. Patient did run out of his Protonix. Has been having reflux symptoms. No precordial pain. Patient's alcohol level in the ER was 223. Patient only eats one meal a day. He was having early alcohol withdrawal symptoms. Was put on Valium and CIWA scale in the ER. This morning feeling better. Very slight tremors. Able to tolerate some breakfast. No chest pain. Patient is counseled at length. Valium discontinued. Seen by oncology. Cleared for discharge. Patient had declined to take any medications for alcohol including naloxone, disulfiram. Agreeable to nicotine patch. Consultation: Dr. Tucker from cardiology Past medical history to include: Asthma, hypertension questionable, questionable [place]. Social history: Lives with his sister and mother. 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 Has been drinking since the age of 8 about 6 beers a day of 12 ounce. Family history: Reviewed, noncontributory to presentation Physical examination: VITAL SIGNS: 98.5, 124, 20, 140/85, 99% room air upon presentation GENERAL: BMI 24, sitting up in bed, awake. EYES: Pupils equal. Conjunctiva normal. HEENT: External appearance of nose and ears normal, oral cavity grossly normal. NECK: JVD not raised; masses not palpable. HEART: First and second heart sounds are normal; no edema. LUNGS: Respiratory rate normal; clear to auscultation. ABDOMEN: Soft, nontender, liver spleen not palpable, no masses palpable. PSYCH: Alert and oriented x3; mood and affect slightly anxiousl. INVESTIGATIONS, reviewed in the clinical context: 2-D echocardiogram: EF 55-60%. Borderline concentric LVH. VQ scan: Low probability for PE White count 9.81 was 16.3 platelets 24 potassium 4 BUN 5 creatinine 0.67 Troponin I 3 negative Lipase 157 UA: Negative Serum alcohol 223 Coronavirus [PCL]: Not detected EKG tracing personally reviewed by me-normal sinus rhythm. Chest x-ray film personally reviewed by me-no infiltrates CT abdomen pelvis: Negative Assessment and plan: -Early alcohol withdrawal syndrome Valium 2 mg 3 times a day. CIWA scale. Lopressor 12.5 by mouth twice a day to cut back on sympathetic drive Valium discontinued. 3 days of Lopressor at the current dose. -Acute alcohol intoxication with level of 223 on presentation -Chronic alcohol dependence disorder Patient counseled. Patient declined to take any naloxone/disulfiram to go home. -Chronic nicotine dependence, cigarette smoking Nicotine patch 21 -GERD, uncontrolled Protonix. Avoid alcohol Disposition: Home Plan - Discharge Summary Discharge Rx Participant: No New Discharge Prescriptions: New Nicotine 21Mg/24Hr Patch [Habitrol] 1 each TRANSDERM DAILY #14 patch Metoprolol Tartrate [Lopressor] 12.5 mg PO BID #6 tab Thiamine [Vitamin B-1] 100 mg PO BID-W/MEALS #60 tab Continue Pantoprazole Sodium [Protonix] 40 mg PO DAILY Discharge Medication List Pantoprazole Sodium [Protonix] 40 mg PO DAILY 12/24/20 [History] Metoprolol Tartrate [Lopressor] 12.5 mg PO BID #6 tab 06/11/21 [Rx] Nicotine 21Mg/24Hr Patch [Habitrol] 1 each TRANSDERM DAILY #14 patch 06/11/21 [Rx] Thiamine [Vitamin B-1] 100 mg PO BID-W/MEALS #60 tab 06/11/21 [Rx] Follow up Appointment(s)/Referral(s): cardiology, [Other] - 6 Weeks Yasmin Tucker MD [STAFF PHYSICIAN] - 07/20/21 3:00 pm Jim Gunter MD [Primary Care Provider] - 1-2 days (please call Dr gunter for an apointment ) Patient Instructions/Handouts: Chest Pain (GEN), At-Risk Alcohol Use (GEN), Acute Abdominal Pain (GEN) Discharge Disposition: HOME SELF-CARE
== END 2021-06-11 13:15 | disposition home or self-care (01) | DRG 897 ==
LOC: EC 15:59 → 6NMEDSUR 19:48 → OBSVTOIN 06-11 09:29
PROVIDERS: ADMIT Hospitalist; ATTEND Hospitalist
DX: F10.229 Alcohol dependence with intoxication, unspecified (principal); R07.89 Other chest pain; F10.239 Alcohol dependence with withdrawal, unspecified; R79.1 Abnormal coagulation profile; F17.210 Nicotine dependence, cigarettes, uncomplicated; I10 Essential (primary) hypertension; J45.909 Unspecified asthma, uncomplicated; K21.9 Gastro-esophageal reflux disease without esophagitis; R00.0 Tachycardia, unspecified; Z20.822 Contact with and (suspected) exposure to COVID-19; Y90.7 Blood alcohol level of 200-239 mg/100 ml; I25.2 Old myocardial infarction; Z86.73 Personal history of transient ischemic attack (TIA), and cerebral infarction without residual deficits; Z79.899 Other long term (current) drug therapy; Z82.49 Family history of ischemic heart disease and other diseases of the circulatory system; Z98.890 Other specified postprocedural states; Z71.41 Alcohol abuse counseling and surveillance of alcoholic
CPT/HCPCS: 36415; 71046; 74177; 78582; 80048; 80053; 80320; 81003; 83605; 83690; 84484; 85025; 85379; 85610; 85730; 87635; 93005; 93306; 96374; 99285

== ENCOUNTER → 2022-08-12 | Outpatient (CLI) | payer OTHER ==
[2022-08-12 18:43] LABS: Basophils # (A) 0.12 X 10*3/uL (0.00-0.10); Basophils % (A) 1.5 %; Eosinophils # (A) 0.22 X 10*3/uL (0.04-0.35); Eosinophils % (A) 2.7 %; HCT 45.7 % (39.6-50.0); HGB 14.9 g/dL (13.0-17.0); Immature Grans, Automated 0.5 %; Lymphocytes # (A) 1.88 X 10*3/uL (0.90-5.00); MCH 33.8 pg (27.0-32.0); MCHC 32.6 g/dL (32.0-37.0); MCV 103.6 fL (80.0-97.0); Mean Platelet Volume 11.3 fL (9.5-12.2); Monocytes # (A) 0.81 X 10*3/uL (0.20-1.00); Monocytes % (A) 9.9 %; NRBC Per 100 WBC 0 /100 WBCS (0.0-0.0); Neutrophils # (A) 5.09 X 10*3/uL (1.80-7.70); Neutrophils % (A) 62.4 %; Platelet Count 116 X 10*3/uL (140-440); RBC 4.41 X 10*6/uL (4.40-5.60); RDW 13.5 % (11.5-14.5); WBC 8.16 X 10*3/uL (4.50-10.00)
[2022-08-12 19:14] LABS: African American GFR (CKD) 130.4 (60.0-200.0); Albumin 4.1 g/dL (3.8-4.9); Albumin/Globulin Ratio 1.46 (1.60-3.17); Anion Gap 11.4 mmol/L (10.00-18.00); BUN/Creat Ratio 7.88 Ratio (12.00-20.00); Blood Urea Nitrogen 6.3 mg/dL (9.0-27.0); Calcium 9.2 mg/dL (8.7-10.3); Carbon Dioxide 25.6 mmol/L (20.0-27.5); Globulin 2.8 g/dL (1.6-3.3); Non-African American GFR(CKD) 112.5 (60.0-200.0); Potassium 3.6 mmol/L (3.5-5.5); Total Bilirubin 1.5 mg/dL (0.30-1.20); Total Protein 6.9 g/dL (6.2-8.2)
== END | disposition home or self-care (01) ==
LOC: LABWHC1 11:46
PROVIDERS: ATTEND Family Medicine
DX: Z00.00 Encounter for general adult medical examination without abnormal findings (principal)
CPT/HCPCS: 36415; 80053; 82150; 83690; 84443; 85025; 86780

== ENCOUNTER 2022-08-24 | Emergency (ER) | payer OTHER ==
[2022-08-24 00:05] VITALS: RESP 18; TEMP 97.7
--- NOTE | 2022-08-24 00:41 | ED ---
Abdominal Pain HPI - General Chief Complaint: Abdominal Pain Stated Complaint: Abdominal pain, Fall Time Seen by Provider: 08/24/22 00:21 Source: patient Mode of arrival: ambulatory Limitations: no limitations - History of Present Illness Initial Comments: This patient is a 37-year-old man who has 2 complaints tonight. The patient had called an ambulance about left upper quadrant pain that is been going on for close to 4 months. He describes it as aching, moderately severe, and it is usually present until he drinks about 3-4 shots of vodka then it goes away for a while. The patient has not noted other changes. No change in bowel movements or urination. He does have some intermittent nausea. Tonight while the patient was waiting for the ambulance, he slipped and fell sliding down stairs in the house. He states that this resulted in some mid back pain area he states he did not hit his head or neck. He denies loss consciousness. No extremity pain. MD Complaint: abdominal pain Onset/Timin -: month(s) Location: [facility] Radiation: none Migration to: no migration Severity: moderate Quality: aching Consistency: intermittent Improves With: other (Vodka) Worsens With: nothing - Related Data Home Medications Medication Instructions Recorded Confirmed Pantoprazole Sodium [Protonix] 40 mg PO DAILY 12/24/20 06/10/21 Previous Rx's Medication Instructions Recorded Metoprolol Tartrate [Lopressor] 12.5 mg PO BID #6 tab 06/11/21 Nicotine 21Mg/24Hr Patch [Habitrol] 1 each TRANSDERM DAILY #14 patch 06/11/21 Thiamine [Vitamin B-1] 100 mg PO BID-W/MEALS #60 tab 06/11/21 Allergies Allergy/AdvReac Type Severity Reaction Status Date / Time No Known Allergies Allergy Verified 08/24/22 00:02 Review of Systems ROS Statement: Those systems with pertinent positive or pertinent negative responses have been documented in the HPI. ROS Other: All systems not noted in ROS Statement are negative. Constitutional: Denies: fever, chills Eyes: Denies: vision change Respiratory: Denies: cough, dyspnea Cardiovascular: Denies: chest pain, palpitations, orthopnea, syncope Gastrointestinal: Reports: as per HPI, abdominal pain, nausea. Denies: vomiting, diarrhea, constipation, melena, hematochezia Genitourinary: Denies: dysuria, frequency, hematuria, testicular pain Musculoskeletal: Reports: as per HPI, back pain Skin: Denies: rash Neurological: Denies: headache, weakness, numbness, confusion Hematological/Lymphatic: Denies: easy bleeding Past Medical History Past Medical History: Asthma, Hypertension, Myocardial Infarction ([place]) Additional Past Medical History / Comment(s): back pain, liver failure Last Myocardial Infarction Date:: 2019 History of Any Multi-Drug Resistant Organisms: None Reported Past Surgical History: No Surgical Hx Reported Additional Past Surgical History / Comment(s): skin graft as child Past Psychological History: No Psychological Hx Reported Smoking Status: Current every day smoker Past Alcohol Use History: Daily, Heavy Past Drug Use History: None Reported General Exam Limitations: no limitations General appearance: alert, in no apparent distress Head exam: Present: atraumatic, normocephalic Eye exam: Present: normal appearance, PERRL, EOMI. Absent: scleral icterus, conjunctival injection ENT exam: Present: mucous membranes dry Neck exam: Present: normal inspection, full ROM. Absent: tenderness Respiratory exam: Present: normal lung sounds bilaterally. Absent: respiratory distress, wheezes, rales, rhonchi, stridor, chest wall tenderness Cardiovascular Exam: Present: regular rate, normal rhythm, normal heart sounds. Absent: systolic murmur, diastolic murmur, rubs, gallop GI/Abdominal exam: Present: soft, tenderness (Mild left upper quadrant tenderness, no rebound or guarding). Absent: distended, guarding, rebound, rigid, mass, pulsatile mass Extremities exam: Present: normal inspection, normal capillary refill. Absent: pedal edema, calf tenderness Back exam: Present: normal inspection. Absent: CVA tenderness (R), CVA tenderness (L) Neurological exam: Present: alert Skin exam: Present: warm, dry, intact, normal color. Absent: rash Course Vital Signs 08/24/22 08/24/22 00:02 04:03 Temperature 97.7 F Pulse Rate 98 78 Respiratory 18 18 Rate Blood Pressure 148/98 110/70 O2 Sat by Pulse 98 98 Oximetry Medical Decision Making - Medical Decision Making This patient is a 37-year-old man presenting here to have evaluation of left upper quadrant pain. From the physical exam, the abdomen does not show any evident peritonitis or surgical condition. Computed tomography scan of the abdomen was obtained which was interpreted by myself as not showing free air, bowel obstruction, or kidney stone. I discussed the findings with patient and with his sister who is here with him. Discussed further options including admission to have consultation with GI/surgery, but the patient declines. He states he feels much more comfortable at home and he will follow up as outpatient. We discussed alcohol use and recommended to markedly decrease his alcohol intake. The patient states that he understands and will work on this. Return parameters discussed. Was pt. sent in by a medical professional or institution? @ -No Did you speak to anyone other than the patient for history? @ -[Patient's sister Did you review nursing and triage notes? @ -[agree Were old charts reviewed? @ -[ Differential Diagnosis? @ -Differential Abdominal Pain Men: Appendicitis, cholecystitis, diverticulosis, ischemic bowel, pancreatitis, hepatitis, UTI, gastroenteritis, AAA, incarcerated hernia, bowel obstruction, constipation, inflammatory bowel, hepatitis, peptic ulcer disease, splenic infarction, perforated viscus, testicular torsion, this is not meant to be an all-inclusive list EKG interpreted by me (3pts min.)? @ -[None X-rays interpreted by me (1pt min.)? @ - CT interpreted by me (1pt min.)? @ -See chart U/S interpreted by me (1pt. min.)? @ -[none] What testing was considered but not performed? (CT, X-rays, U/S, labs)? Why? @ [ What meds were considered but not given? Why? @ -[none] Did you discuss the management of the patient with other professionals? @ -[No Did you reconcile home meds? @ -[ Was smoking cessation discussed for >3mins.? @ -[yes Was critical care preformed (if so, how long)? @ -[none] Were there social determinants of health that impacted care today? How? (Homelessness, low income, unemployed, alcoholism, drug addiction, transportation, low edu. Level, literacy, decrease access to med. care, penitentiary, rehab)? @ -[Alcohol abuse Was there de-escalation of care discussed even if they declined? (Discuss DNR or withdrawal of care, Hospice)? @ -[No What co-morbidities impacted this encounter? (DM, HTN, Smoking, COPD, CAD, Cancer, CVA, Hep., AIDS, mental health diagnosis, sleep apnea, morbid obesity)? @ -[Alcohol abuse Was patient admitted / discharged? @ -[Discharged Undiagnosed new problem with uncertain prognosis? @ -[none] Drug Therapy requiring intensive monitoring for toxicity (Heparin, Nitro, Insulin, Cardizem)? @ -[none] Were any procedures done? @ -[none] Diagnosis/symptom? @ -[Acute abdominal pain Acute, or Chronic, or Acute on Chronic? @ -[Acute on chronic Uncomplicated (without systemic symptoms) or Complicated (systemic symptoms)? @ -[Uncomplicated Side effects of treatment? @ -[none] Exacerbation, Progression, or Severe Exacerbation] @ -[no] Poses a threat to life or bodily function? @ -[No - Lab Data Result diagrams: 08/24/22 01:29 08/24/22 00:39 Lab Results 08/24/22 08/24/22 08/24/22 Range/Units 00:39 00:39 01:18 WBC (3.8-10.6) k/uL RBC (4.30-5.90) m/uL Hgb (13.0-17.5) gm/dL Hct (39.0-53.0) % MCV (80.0-100.0) fL MCH (25.0-35.0) pg MCHC (31.0-37.0) g/dL RDW (11.5-15.5) % Plt Count (150-450) k/uL MPV Neutrophils % % Lymphocytes % % Monocytes % % Eosinophils % % Basophils % % Neutrophils # (1.3-7.7) k/uL Lymphocytes # (1.0-4.8) k/uL Monocytes # (0-1.0) k/uL Eosinophils # (0-0.7) k/uL Basophils # (0-0.2) k/uL Sodium 146 H (137-145) mmol/L Potassium 3.5 (3.5-5.1) mmol/L Chloride 110 H (98-107) mmol/L Carbon Dioxide 24 (22-30) mmol/L Anion Gap 12 mmol/L BUN 3 L (9-20) mg/dL Creatinine 0.68 (0.66-1.25) mg/dL Est GFR (CKD-EPI)AfAm >90 (>60 ml/min/1.73 sqM) Est GFR (CKD-EPI)NonAf >90 (>60 ml/min/1.73 sqM) Glucose 94 (74-99) mg/dL Lactic Ac Sepsis Rflx Plasma Lactic Acid Segundo 2.5 H* (0.7-2.0) mmol/L Calcium 8.8 (8.4-10.2) mg/dL Magnesium 1.5 L (1.6-2.3) mg/dL Total Bilirubin 0.4 (0.2-1.3) mg/dL AST 83 H (17-59) U/L ALT 36 (4-49) U/L Alkaline Phosphatase 73 (38-126) U/L Total Protein 7.3 (6.3-8.2) g/dL Albumin 4.0 (3.5-5.0) g/dL Amylase 112 H (30-110) U/L Lipase 625 H (23-300) U/L Urine Color Colorless Urine Appearance Clear (Clear) Urine pH 6.0 (5.0-8.0) Ur Specific [employer] 1.002 (1.001-1.035) Urine Protein Negative (Negative) Urine Glucose (UA) Negative (Negative) Urine Ketones Negative (Negative) Urine Blood Negative (Negative) Urine Nitrite Negative (Negative) Urine Bilirubin Negative (Negative) Urine Urobilinogen <2.0 (<2.0) mg/dL Ur Leukocyte Esterase Negative (Negative) Serum Alcohol 460 H* mg/dL 08/24/22 08/24/22 Range/Units 01:29 02:39 WBC 7.0 (3.8-10.6) k/uL RBC 4.28 L (4.30-5.90) m/uL Hgb 14.2 (13.0-17.5) gm/dL Hct 43.4 (39.0-53.0) % MCV 101.4 H (80.0-100.0) fL MCH 33.2 (25.0-35.0) pg MCHC 32.8 (31.0-37.0) g/dL RDW 12.8 (11.5-15.5) % Plt Count 159 (150-450) k/uL MPV 8.0 Neutrophils % 42 % Lymphocytes % 43 % Monocytes % 5 % Eosinophils % 5 % Basophils % 2 % Neutrophils # 2.9 (1.3-7.7) k/uL Lymphocytes # 3.0 (1.0-4.8) k/uL Monocytes # 0.3 (0-1.0) k/uL Eosinophils # 0.3 (0-0.7) k/uL Basophils # 0.1 (0-0.2) k/uL Sodium (137-145) mmol/L Potassium (3.5-5.1) mmol/L Chloride (98-107) mmol/L Carbon Dioxide (22-30) mmol/L Anion Gap mmol/L BUN (9-20) mg/dL Creatinine (0.66-1.25) mg/dL Est GFR (CKD-EPI)AfAm (>60 ml/min/1.73 sqM) Est GFR (CKD-EPI)NonAf (>60 ml/min/1.73 sqM) Glucose (74-99) mg/dL Lactic Ac Sepsis Rflx Y Plasma Lactic Acid Segundo (0.7-2.0) mmol/L Calcium (8.4-10.2) mg/dL Magnesium (1.6-2.3) mg/dL Total Bilirubin (0.2-1.3) mg/dL AST (17-59) U/L ALT (4-49) U/L Alkaline Phosphatase (38-126) U/L Total Protein (6.3-8.2) g/dL Albumin (3.5-5.0) g/dL Amylase (30-110) U/L Lipase (23-300) U/L Urine Color Urine Appearance (Clear) Urine pH (5.0-8.0) Ur Specific [employer] (1.001-1.035) Urine Protein (Negative) Urine Glucose (UA) (Negative) Urine Ketones (Negative) Urine Blood (Negative) Urine Nitrite (Negative) Urine Bilirubin (Negative) Urine Urobilinogen (<2.0) mg/dL Ur Leukocyte Esterase (Negative) Serum Alcohol mg/dL Disposition Clinical Impression: Abdominal pain, Alcohol intoxication Disposition: HOME SELF-CARE Condition: Fair Instructions (If sedation given, give patient instructions): Abdominal Pain (ED), Alcohol Use Disorder (ED) Is patient prescribed a controlled substance at d/c from ED?: No Referrals: None,Stated [REFERRING] - 1-2 days Emely Zuñiga MD [STAFF PHYSICIAN] - 1-2 days
[2022-08-24] MEDS ORDERED: LORazepam 2 MG/ML INJ IV STA (00:55)
[2022-08-24] MEDS ORDERED: SODIUM CHLORIDE 0.9% 500 ML 500 ML IV STA (00:55)
[2022-08-24 01:22] LABS: ALT 36 U/L (4-49); AST 83 U/L (17-59); African American GFR (CKD) >90 (>60 ml/min/1.73 sqM); Alkaline Phosphatase 73 U/L (38-126); Amylase 112 U/L (30-110); Anion Gap 12 mmol/L; Blood Urea Nitrogen 3 mg/dL (9-20); Calcium 8.8 mg/dL (8.4-10.2); Carbon Dioxide 24 mmol/L (22-30); Chloride 110 mmol/L (98-107); Glucose 94 mg/dL (74-99); Lipase 625 U/L (23-300); Magnesium 1.5 mg/dL (1.6-2.3); Non-African American GFR(CKD) >90 (>60 ml/min/1.73 sqM); Potassium 3.5 mmol/L (3.5-5.1); Sodium 146 mmol/L (137-145); Total Bilirubin 0.4 mg/dL (0.2-1.3); Total Protein 7.3 g/dL (6.3-8.2)
[2022-08-24] MEDS ORDERED: MAG HYDROX/AL HYDROX/SIMETH 30 ML, HYOSCYAMINE ELIXIR 10 ML, LIDOCAINE VISCOUS 2% 10 ML PO STA ×3 (01:41)
[2022-08-24 01:44] LABS: Basophils # (A) 0.1 k/uL (0-0.2); Basophils % (A) 2 %; Eosinophils # (A) 0.3 k/uL (0-0.7); Eosinophils % (A) 5 %; HCT 43.4 % (39.0-53.0); HGB 14.2 gm/dL (13.0-17.5); Lymphocytes % (A) 43 %; MCH 33.2 pg (25.0-35.0); MCHC 32.8 g/dL (31.0-37.0); MCV 101.4 fL (80.0-100.0); Monocytes # (A) 0.3 k/uL (0-1.0); Monocytes % (A) 5 %; Neutrophils # (A) 2.9 k/uL (1.3-7.7); Neutrophils % (A) 42 %; Platelet Count 159 k/uL (150-450); RBC 4.28 m/uL (4.30-5.90); RDW 12.8 % (11.5-15.5)
[2022-08-24 01:58] LABS: Appearance,Urine Clear (Clear); Bilirubin,Urine Negative (Negative); Blood,Urine Negative (Negative); Color,Urine Colorless; Glucose,Urine (UA) Negative (Negative); Ketones,Urine Negative (Negative); Leukocyte Esterase,Urine Negative (Negative); Nitrite,Urine Negative (Negative); Protein,Urine Negative (Negative); Specific Gravity,Urine 1.002 (1.001-1.035); Urobilinogen,Urine <2.0 mg/dL (<2.0)
[2022-08-24 02:19] LABS: Alcohol 460 mg/dL
--- NOTE | 2022-08-24 03:22 | CT ---
EXAMINATION TYPE: CT abdomen pelvis w con DATE OF EXAM: 08/24/2022 COMPARISON: 06/10/2021 HISTORY: Abdominal pain CT DLP: 760.7 mGycm Automated exposure control for dose reduction was used. CONTRAST: Performed with IV Contrast, patient injected with 100ml mL of Isovue 300. Images obtained from the diaphragm to the floor of the pelvis with the IV contrast. The lung bases show mild subsegmental atelectasis. Heart appears normal. No pericardial effusion. No pleural effusion. There is diffuse fatty replacement of the liver. Spleen is intact. No evidence of p ancreatic mass. The stomach is intact. Gallbladder appears normal. The bile ducts are not dilated. There is no adrenal mass. Kidneys show satisfactory contrast opacification. No hydronephrosis. Delaye d images show normal renal excretion. No retroperitoneal adenopathy. The bladder distends smoothly. N o inguinal hernia. No free fluid in the pelvis. No pelvic mass. Appendix is posterior and appears nor mal. There is no mesenteric edema. No ascites or free air. No sign of a bowel obstruction. The lumbar vertebrae have normal alignment. Posterior elements are intact. No compression fracture. T he bony pelvis is intact. The hip joints are intact. IMPRESSION: Normal appendix. Mild fatty infiltration of the liver. No acute abnormality within the abdomen pelvis . No adverse change compared to old exam.
[2022-08-24 04:04] VITALS: BP 110/70; PULSE 78
== END 2022-08-24 04:03 | disposition home or self-care (01) ==
LOC: EC
DX: R10.12 Left upper quadrant pain (principal); F10.129 Alcohol abuse with intoxication, unspecified; I10 Essential (primary) hypertension; I25.2 Old myocardial infarction; J45.909 Unspecified asthma, uncomplicated; F17.200 Nicotine dependence, unspecified, uncomplicated
CPT/HCPCS: 36415; 80053; 82150; 83605; 83690; 83735; 85025; 81003; 74177; 99285; 96374; G0480; J2060; Q9967; 80320